=== PATIENT | female | born 1980 | race Caucasian/White ===

== ENCOUNTER 2020-11-26 22:26 | Emergency (ER) | payer OTHER ==
[~2020-11-26 22:26] MED LIST: K-DUR TAB 20 M20 MEQ PO; ZOFRAN ODT 4 MG4 MG PO; ZOFRAN4 MG PO
[2020-11-26 23:17] LABS: HEMOGLOBIN 17.3 gm/dl (12.3-15.3); RED BLOOD COUNT 5.39 M/UL (4.00-5.10); WHITE BLOOD COUNT 3.7 K/UL (4.5-11.0)
[2020-11-26 23:52] LABS: BUN/CREATININE RATIO 8 (0-10)
[2020-11-27] MEDS ORDERED: VIBRAMYCIN 100100 MG PO (01:01)
== END 2020-11-27 01:45 | disposition home or self-care (01) ==
LOC: ER1 22:26
PROVIDERS: Physician Assistant
DX: A41.9 Sepsis, unspecified organism (principal); E87.6 Hypokalemia; F19.90 Other psychoactive substance use, unspecified, uncomplicated; F17.210 Nicotine dependence, cigarettes, uncomplicated; Z86.19 Personal history of other infectious and parasitic diseases; Z98.890 Other specified postprocedural states; Z20.828 Contact with and (suspected) exposure to other viral communicable diseases
CPT/HCPCS: 71045; 80053; 81001; 82550; 82553; 83605; 83874; 84484; 84703; 85025; 86140; 87040; 87081; 87086; 87880; 93005; 96365; 99284; Q9967; U0002

== ENCOUNTER 2021-05-09 19:00 | Inpatient (IN) | payer OTHER ==
[~2021-05-09] VITALS: Ht 170.2 cm; Wt 86.6 kg
[~2021-05-09 19:00] MED LIST changes: +VIBRAMYCIN 100100 MG PO
[2021-05-09 19:52] LABS: HEMOGLOBIN 15.7 gm/dl (12.3-15.3); RED BLOOD COUNT 4.88 M/UL (4.00-5.10); WHITE BLOOD COUNT 10.7 K/UL (4.5-11.0)
[2021-05-09 20:16] LABS: BUN/CREATININE RATIO 12 (0-10)
--- NOTE | 2021-05-10 02:12 | NUR ---
Patient states that she does not take any home medications
[2021-05-10] MEDS ORDERED: VENTOLIN HFA 66.7 GM INH (10:12)
[2021-05-11 04:36] LABS: HEMOGLOBIN 13.8 gm/dl (12.3-15.3); RED BLOOD COUNT 4.28 M/UL (4.00-5.10); WHITE BLOOD COUNT 20.8 K/UL (4.5-11.0)
[2021-05-11 04:55] LABS: BUN/CREATININE RATIO 15 (0-10)
[2021-05-13 03:35] LABS: HEMOGLOBIN 13.3 gm/dl (12.3-15.3); RED BLOOD COUNT 4.19 M/UL (4.00-5.10)
[2021-05-13 03:41] LABS: WHITE BLOOD COUNT 12.9 K/UL (4.5-11.0)
[2021-05-13 04:11] LABS: BUN/CREATININE RATIO 21 (0-10)
[2021-05-13] MEDS ORDERED: OMNICEF 300 MG300 MG PO (11:29)
[2021-05-13] MEDS ORDERED: ZITHROMAX1 GM PO (11:29)
[2021-05-13] MEDS ORDERED: MEDROL DOSEPAK 24 MG PO (11:29)
[2021-05-13] MEDS ORDERED: IPRAT-ALBUT 0.5-3 ML NEB (11:29)
[2021-05-13] MEDS ORDERED: COMBIVENT RESPIM4 GM INH (11:39)
--- NOTE | 2021-05-13 13:20 | NUR ---
PT OXYGEN WAS REMOVED FOR MONITORING PURPOSES. PT AT REST WAS 98% OXYGEN SATURATION AND AMBULATION THE LOWEST THE PT DROPPED WAS 94%. WILL CONTINUE TO MONITOR PT OXYGEN BEFORE SHE IS DISCHARGED HOME.
== END 2021-05-13 16:00 | disposition home or self-care (01) | DRG 189 ==
LOC: ER1 19:00 → M/S 23:59 → CDU 23:59 → M/S 05-10 02:00
PROVIDERS: Physician Assistant; Physician Assistant Medical; ADMIT Internal Medicine
DX: J96.01 Acute respiratory failure with hypoxia (principal); J44.1 Chronic obstructive pulmonary disease with (acute) exacerbation; E87.2 Acidosis; J96.02 Acute respiratory failure with hypercapnia; I10 Essential (primary) hypertension; G89.29 Other chronic pain; F17.210 Nicotine dependence, cigarettes, uncomplicated; Z20.822 Contact with and (suspected) exposure to COVID-19; Z98.890 Other specified postprocedural states
CPT/HCPCS: 0240U; 36415; 36600; 71045; 80048; 80053; 82550; 82553; 82803; 83605; 83735; 83874; 84484; 85025; 85027; 87040; 93005; 94640; 94644; 94664; 94760; 96365; 96375; 99285; G0378; J0456; J0696; J1100; J2060; J2920; J2930; J7030; Q9967

== ENCOUNTER 2022-05-07 02:21 | Emergency (ER) | payer OTHER ==
[~2022-05-07 02:21] MED LIST changes: +COMBIVENT RESPIM4 GM INH; +IPRAT-ALBUT 0.5-3 ML NEB; +MEDROL DOSEPAK 24 MG PO; +OMNICEF 300 MG300 MG PO; +VENTOLIN HFA 66.7 GM INH; +ZITHROMAX1 GM PO
[2022-05-07 03:03] LABS: HEMOGLOBIN 15.3 gm/dl (12.3-15.3); RED BLOOD COUNT 5.05 M/UL (4.00-5.10); WHITE BLOOD COUNT 5.1 K/UL (4.5-11.0)
[2022-05-10 18:12] LABS: HBSAG SCREEN Positive (Negative); HCV AB >11.0 (0.0-0.9); HEP A AB, IGM Negative (Negative); HEP B CORE AB, IGM Positive (Negative); HEPATITIS C QUANTITATION HCV Not Detected IU/mL (.)
== END 2022-05-07 10:22 | disposition home or self-care (01) ==
LOC: ER1 02:21
PROVIDERS: Emergency Medicine; Student in an Organized Health Care Education/Training Program
DX: J44.1 Chronic obstructive pulmonary disease with (acute) exacerbation (principal); K75.9 Inflammatory liver disease, unspecified; I10 Essential (primary) hypertension; F17.210 Nicotine dependence, cigarettes, uncomplicated
CPT/HCPCS: 71045; 80053; 80074; 80307; 81001; 82550; 82553; 84484; 85025; 85610; 93005; 94664; 94760; 96374; 99285; J1100; Q9967

== ENCOUNTER → 2022-06-26 | Outpatient (CLI) | payer OTHER | LOC: HEART 5 16:11 | DX: J44.9 Chronic obstructive pulmonary disease, unspecified (principal); R06.02 Shortness of breath | CPT/HCPCS: 94060; 94729; 95012 ==

== ENCOUNTER → 2022-08-13 | Outpatient (CLI) | payer OTHER ==
[2022-08-13 16:19] LABS: HEMOGLOBIN 14.8 gm/dl (12.3-15.3); RED BLOOD COUNT 4.57 M/UL (4.00-5.10); WHITE BLOOD COUNT 5.2 K/UL (4.5-11.0)
== END ==
LOC: LAB 14:56
PROVIDERS: Internal Medicine Critical Care Medicine
DX: J44.9 Chronic obstructive pulmonary disease, unspecified (principal)
CPT/HCPCS: 36415; 82785; 85025